=== PATIENT | male | born 1970 | race Two or more races ===

== ENCOUNTER 2016-08-07 09:59 | Emergency (ER) | payer SELFPAY ==
[2016-08-07] MEDS ORDERED: 0.9 % SODIUM CHLORIDE 1,000 ML IV ONE (10:01)
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
[2016-08-07 10:25] LABS: BASOPHILS % 0.7 (0.0-1.5); EOSINOPHILS % 3.4 % (0.0-6.8); MEAN CORPUSCULAR HEMOGLOBIN 30.6 pg (28.0-34.0); MEAN CORPUSCULAR VOLUME 89.4 fl (80.0-100.0); MONOCYTES % 6.2 % (0.0-11.0); NEUTROPHILS # 6.7 # k/uL (1.4-7.7)
[2016-08-07 10:30] LABS: eGFR (African) > 60; eGFR (Non-African) > 60
[2016-08-07 10:36] VITALS: BP 117/80
== END 2016-08-07 11:05 ==
LOC: ED 09:59
DX: R41.82 Altered mental status, unspecified (principal)
CPT/HCPCS: 80053; 80320; 85025; 93005; J7030; 96360; 99283; 99284; G0480; S1016